=== PATIENT | female | born 1990 ===

== ENCOUNTER 2019-02-10 17:05 | Emergency (ER) | payer MEDICAID, OTHER ==
[2019-02-10 17:06] VITALS: BMI 31.6
[2019-02-10 17:28] VITALS: RESP 16
[2019-02-10] MEDS ORDERED: Sodium Chloride 0.9% 1,000 ML IV ONE (18:22)
[2019-02-10 18:46] LABS: SQUAMOUS EPITHIAL 1 /hpf (0-5); URINE BACTERIA RARE (<OCC); URINE BILIRUBIN NEGATIVE (NEGATIVE); URINE BLOOD NEGATIVE (NEGATIVE); URINE CLARITY Hazy (Clear); URINE COLOR Amber (YELLOW); URINE GLUCOSE (UA) NORMAL (Normal); URINE LEUKOCYTE ESTERASE NEG Leu/uL (Negative); URINE PROTEIN 2+ mg/dL (NEGATIVE); URINE UROBILINOGEN NORMAL mg/dL (0.2-1.0)
[2019-02-10 19:05] LABS: BASO # 0.1 K/uL (0.0-0.2); BASO % 1.1 % (0.0-2.0); EOS # 0.1 K/uL (0.0-0.7); EOS % 1.2 % (0.0-4.0); HEMOGLOBIN 12.8 g/dL (11.0-16.0); LYMPH # 2.1 K/uL (1.0-4.3); LYMPH % 41.3 % (20.0-40.0); MEAN CORPUSCULAR HEMOGLOBIN 29.4 pg (27.0-31.0); MEAN CORPUSCULAR HGB CONC 33.8 g/dL (33.0-37.0); MEAN PLATELET VOLUME 8.1 fL (7.2-11.7); MONO # 0.5 K/uL (0.0-0.8); MONO % 10.4 % (0.0-10.0); NEUT # 2.3 K/uL (1.8-7.0); RBC 4.37 Mil/uL (3.80-5.20)
[2019-02-10 19:19] LABS: ALB/GLOB RATIO 1.4 (1.0-2.1); ALBUMIN 4.2 g/dL (3.5-5.0); ALT/SGPT 22 U/L (9-52); AST/SGOT 22 U/L (14-36); BLOOD UREA NITROGEN 9 mg/dL (7-17); CALCIUM 9.5 mg/dl (8.6-10.4); GFR NON-AFRICAN AMERICAN > 60
--- NOTE | 2019-02-10 20:01 | C.PDOC ---
History Of Present Illness 29 year old female presents with vaginal spotting and lower abdominal cramping for the past 3 days. Patient is 9 weeks by date, miscarriage 1. Patient had normal intrauterine at 6 weeks seen by OBGYN yestreday, normal pelvic, closed os, no bleeding. Patient was repeat US tonight understanding that we know she does not have an ectopic. Time Seen by Provider: 02/10/19 18:18 Chief Complaint (Nursing): Female Genitourinary History Per: Patient History/Exam Limitations: no limitations Onset/Duration Of Symptoms: Days (3) Current Symptoms Are (Timing): Still Present Quality Of Discomfort: Cramping Associated Symptoms: Other (Vaginal spotting) Alleviating Factors: None Recent travel outside of the [place]: No Past Medical History Reviewed: Historical Data, Nursing Documentation, Vital Signs Vital Signs: Last Vital Signs Temp 98.2 F 02/10/19 17:26 Pulse 74 02/10/19 17:26 Resp 16 02/10/19 17:26 BP 133/87 02/10/19 17:26 Pulse Ox 98 02/10/19 17:26 - Medical History PMH: Denies: Depression, Diabetes, HTN - [facility] Procedures DELIVERY OF PRODUCTS OF CONCEPTION, EXTERNAL APPROACH (09/17/17) MONITORING OF POC, CARDIAC RATE, DIRECTOR OF EDUCATION APPROACH (09/17/17) Family History: States: Unknown Family Hx - Social History Hx Tobacco Use: Yes Hx Alcohol Use: Yes Hx Substance Use: No - Immunization History Hx Tetanus Toxoid Vaccination: No Hx Influenza Vaccination: Yes Hx Pneumococcal Vaccination: No Review Of Systems Constitutional: Negative for: Fever, Chills Cardiovascular: Negative for: Chest Pain, Palpitations Respiratory: Negative for: Cough, Shortness of Breath Gastrointestinal: Positive for: Abdominal Pain. Negative for: Nausea, Vomiting Genitourinary: Positive for: Other (Vaginal spotting) Neurological: Negative for: Weakness, Numbness Physical Exam - Physical Exam Appears: Non-toxic, No Acute Distress, Other (Obese female) Skin: Normal Color, Warm Head: Atraumatic, Normacephalic Eye(s): bilateral: Normal Inspection Oral Mucosa: Moist Chest: Symmetrical, No Tenderness Cardiovascular: Rhythm Regular Respiratory: Normal Breath Sounds, No Rales, No Rhonchi, No Wheezing Gastrointestinal/Abdominal: Soft, No Tenderness Neurological/Psych: Oriented x3, Normal Speech ED Course And Treatment - Laboratory Results Result Diagrams: 02/10/19 19:01 02/10/19 19:01 Lab Results: Total Bilirubin 0.2 mg/dL (0.2-1.3) 02/10/19 19:01 AST 22 U/L (14-36) 02/10/19 19:01 ALT 22 U/L (9-52) 02/10/19 19:01 Alkaline Phosphatase 56 U/L (38-126) 02/10/19 19:01 Total Protein 7.1 g/dL (6.3-8.3) 02/10/19 19: Albumin 4.2 g/dL (3.5-5.0) 02/10/19 19: Globulin 3.0 gm/dL (2.2-3.9) 02/10/19 19: Albumin/Globulin Ratio 1.4 (1.0-2.1) 02/10/19 19:01 Urine Color [place] (YELLOW) 02/10/19 18:34 Urine Clarity Hazy (Clear) 02/10/19 18:34 Urine pH 7.0 (5.0-8.0) 02/10/19 18:34 Ur Specific [place] 1.027 (1.003-1.030) 02/10/19 18:34 Urine Protein 2+ mg/dL (NEGATIVE) H 02/10/19 18:34 Urine Glucose (UA) Normal mg/dL (Normal) 02/10/19 18:34 Urine Ketones 1+ mg/dL (NEGATIVE) H 02/10/19 18:34 Urine Blood Negative (NEGATIVE) 02/10/19 18:34 Urine Nitrate Negative (NEGATIVE) 02/10/19 18:34 Urine Bilirubin Negative (NEGATIVE) 02/10/19 18:34 Urine Urobilinogen Normal mg/dL (0.2-1.0) 02/10/19 18:34 Ur Leukocyte Esterase Neg [place]/uL (Negative) 02/10/19 18:34 Urine WBC (Auto) 1 /hpf (0-5) 02/10/19 18:34 Ur Squamous Epith Cells 1 /hpf (0-5) 02/10/19 18:34 Urine Bacteria Rare (<OCC) 02/10/19 18:34 Urine HCG, Qual Positive (NEGATIVE) 02/10/19 18:34 Beta HCG, Quant 89578.00 mIU/ML 02/10/19 19:01 Urine HCG, Qual Positive (NEGATIVE) 02/10/19 18:34 Lab Interpretation: Abnormal (QHCG 13,322, O+ (prior evals)) Urine POC: Positive O2 Sat by Pulse Oximetry: 98 Reevaluation Time: 21:17 Reassessment Condition: Unchanged Medical Decision Making Medical Decision Making: demise, threatened AB no ectopic opt f/u no Rho Saroj required Disposition Doctor Will See Patient In The: Office Counseled Patient/Family Regarding: Studies Performed, Diagnosis - Disposition Disposition: HOME/ ROUTINE Disposition Time: 21:18 Condition: GOOD Forms: [facility] (French) - Clinical Impression Clinical Impression: Threatened - Scribe Statement The provider has reviewed the documentation as recorded by the Scribe Scottie Cummins All medical record entries made by the Scribe were at my direction and personally dictated by me. I have reviewed the chart and agree that the record accurately reflects my personal performance of the history, physical exam, medical decision making, and the department course for this patient. I have also personally directed, reviewed, and agree with the discharge instructions and disposition.
[2019-02-10 22:00] VITALS: BP 123/83; PULSE 71; TEMP 98.6; O2SAT 99
--- NOTE | 2019-02-11 09:10 | US ---
Date of service: 02/10/2019 PROCEDURE: OB Pelvic Ultrasound HISTORY: threatened AB @ 9 wks LMP: Unknown COMPARISON: None available. FINDINGS: UTERUS: Gestational sac: Single intrauterine gestation. Gestational sac diameter measures 3.04 cm corresponding to 8 weeks and 0 day of gestational age. Yolk sac is visualized. pole measures 1.36 cm corresponding to 7 weeks and 4 days of gestational age. No cardiac activity is documented on the current examination. Patt-gestational hemorrhage: None. Uterus measures 10.9 x 7.1 x 8.8 cm. Normal in size and appearance. CERVIX: Measures 4.4 cm. Long and closed. No cervical abnormality seen. RIGHT OVARY: Measures 3.0 x 1.6 x 2.4 cm. No mass lesion. Normal flow. LEFT OVARY: Measures 3.1 x 2.3 x 1.0 cm. No solid mass. Normal flow. There is a 1.5 x 1.3 x 1.5 cm corpus luteum cyst. FREE FLUID: None. OTHER FINDINGS: None. IMPRESSION: Single intrauterine gestation with mean gestational age of 7 weeks and 6 days. No cardiac activity is documented on the current examination concerning for device. Clinical follow-up is advised. A preliminary report was provided by [facility].
== END 2019-02-10 22:01 | disposition home or self-care (01) ==
LOC: C.ER 17:05
DX: O20.0 Threatened abortion (principal); Z3A.01 Less than 8 weeks gestation of pregnancy

== ENCOUNTER 2019-02-11 12:52 | Outpatient (CLI) | payer OTHER | END 2019-02-11 12:53 | disposition home or self-care (01) | LOC: C.LAB 12:52 | DX: O20.0 Threatened abortion (principal); O09.299 Supervision of pregnancy with other poor reproductive or obstetric history, unspecified trimester ==